=== PATIENT | female | born 1985 | race African-American/Black ===

== ENCOUNTER 2018-11-08 22:57 | Emergency (ER) | payer MEDICAID ==
[~2018-11-08] VITALS: Ht 182.9 cm; Wt 67.0 kg
[2018-11-08 23:09] VITALS: BP 135/86
== END 2018-11-09 01:20 | disposition left against medical advice (07) ==
LOC: ER 22:57
DX: Z53.21 Procedure and treatment not carried out due to patient leaving prior to being seen by health care provider (principal)